=== PATIENT | female | born 1990 | race Caucasian/White ===

== ENCOUNTER 2017-11-23 18:49 | Emergency (ER) | payer MEDICAID ==
[~2017-11-23] VITALS: Ht 162.6 cm; Wt 84.2 kg
[2017-11-23 19:03] VITALS: BP 125/79
== END 2017-11-23 20:29 | disposition left against medical advice (07) ==
LOC: ER 18:49
DX: Z53.21 Procedure and treatment not carried out due to patient leaving prior to being seen by health care provider (principal); F41.0 Panic disorder [episodic paroxysmal anxiety]
CPT/HCPCS: 93005

== ENCOUNTER 2020-07-13 17:46 | Emergency (ER) | payer MEDICAID ==
[~2020-07-13] VITALS: Ht 170.2 cm; Wt 69.0 kg
[2020-07-13 17:48] VITALS: BP 121/84
== END 2020-07-13 18:48 | disposition home or self-care (01) ==
LOC: ER 17:46
DX: G44.309 Post-traumatic headache, unspecified, not intractable (principal); W20.8XXA Other cause of strike by thrown, projected or falling object, initial encounter; Y93.9 Activity, unspecified; Y92.9 Unspecified place or not applicable
CPT/HCPCS: 99281

== ENCOUNTER 2023-04-25 14:42 | Emergency (ER) | payer MEDICAID ==
[~2023-04-25] VITALS: Ht 162.6 cm; Wt 71.0 kg
[2023-04-25 15:04] VITALS: BP 103/45; PULSE 77; RESP 16; TEMP 98.9; O2SAT 99
[2023-04-25 18:31] LABS: BASOPHILS % 0.3 % (0.0-2.0); EOSINOPHILS % 0.5 % (0.0-5.0); HEMATOCRIT. 42.5 % (36.0-48.0); HEMOGLOBIN. 14.1 g/dL (12.0-16.0); LYMPHOCYTES % 29.6 % (20.0-50.0); MEAN CORPUSCULAR HGB CONC 33.1 g/dL (31.0-37.0); MEAN CORPUSCULAR VOLUME 90.6 fL (81.0-99.0); MEAN PLATELET VOLUME 10.3 fl (7.4-10.4); MONOCYTES % 6.9 % (2.0-8.0); NEUTROPHILS % 62.7 % (40.0-76.0); PLATELET 209 x1000/uL (130-400); RED BLOOD CELL COUNT 4.69 mill/uL (4.2-5.4); RED CELL DISTRIBUTION WIDTH 13.5 % (11.6-14.6); WHITE BLOOD COUNT 8.2 x1000/uL (4.5-11.0)
[2023-04-25 18:43] LABS: ALANINE AMINOTRANSFERASE 40 IU/L (10-49); ALBUMIN 4.5 g/dL (3.2-4.8); ASPARTATE AMINOTRANSFERASE 32 IU/L (<34); BILIRUBIN TOTAL 0.5 mg/dL (0.1-1.0); CALCIUM 9.4 mg/dL (8.7-10.4); CARBON DIOXIDE 26 mEq/L (21-32); CHLORIDE 104 mEq/L (98-107); CREATININE 0.6 mg/dL (0.6-1.0); GLUCOSE 81 mg/dL (70-105); POTASSIUM 4.5 mEq/L (3.5-5.1); PROTEIN TOTAL 8.1 g/dL (6.0-8.3); SODIUM 137 mEq/L (136-145); UREA NITROGEN BLOOD 20 mg/dL (9-23)
== END 2023-04-25 20:49 | disposition home or self-care (01) ==
LOC: ER 14:42
DX: R53.1 Weakness (principal); H57.12 Ocular pain, left eye; F12.10 Cannabis abuse, uncomplicated
CPT/HCPCS: 36415; 80053; 81025; 85025; 99284

== ENCOUNTER 2024-11-29 10:06 | Emergency (ER) | payer MEDICAID ==
[~2024-11-29] VITALS: Ht 162.6 cm; Wt 81.0 kg
[2024-11-29 10:11] VITALS: O2SAT 98
[2024-11-29] MEDS: TETANUS, DIPHTHERIA, PERTUSSIS VAC/PF 0.5ML (>10YR OLD) IM ONE (10:36)
[2024-11-29] MEDS: LIDOCAINE HCL 1% 20ML VIAL INL ONE (10:36)
[2024-11-29] MEDS ORDERED: BO1 TP (10:57)
[2024-11-29 11:13] VITALS: BP 111/75; PULSE 67; RESP 18; TEMP 36.7; O2SAT 98
== END 2024-11-29 11:15 | disposition home or self-care (01) ==
LOC: ER 10:06
DX: S91.311A Laceration without foreign body, right foot, initial encounter (principal); F12.90 Cannabis use, unspecified, uncomplicated; X58.XXXA Exposure to other specified factors, initial encounter; Y93.89 Activity, other specified; Y92.89 Other specified places as the place of occurrence of the external cause; Y99.8 Other external cause status
CPT/HCPCS: 90715; 12001; 90471; 99283; J2003; Z7610 ×2